=== PATIENT | female | born 1995 | race African-American/Black ===

== ENCOUNTER → 2019-12-06 | Emergency (ER) | payer MEDICAID ==
[~2019-12-06] VITALS: Ht 162.6 cm; Wt 68.0 kg
[~2019-12-06] MED LIST: KETOROLAC TROMETH 60MG/2ML VIAL IM ONE
[2019-12-06 16:00] VITALS: BP 116/63
== END | disposition home or self-care (01) ==
LOC: ER 11:59
DX: M26.601 Right temporomandibular joint disorder, unspecified (principal); Z32.02 Encounter for pregnancy test, result negative; Z90.49 Acquired absence of other specified parts of digestive tract; Z88.6 Allergy status to analgesic agent
CPT/HCPCS: 70486; 81025; 96372; 99284; J1885

== ENCOUNTER 2021-09-26 09:21 | Emergency (ER) | payer MEDICAID, OTHER ==
[~2021-09-26] VITALS: Ht 162.6 cm; Wt 72.6 kg
[2021-09-26] MEDS ORDERED: ONDANSETRON HCL 4 MG/2 ML VIAL IV ONE (09:45)
[2021-09-26 09:55] LABS: Basophils # (auto) 0 10 ^3/uL (0-0.2); Basophils % (auto) 0.2 % (0.0-2.0); Eosinophils # (auto) 0 10 ^3/uL (0-0.8); Eosinophils % (auto) 0.3 % (0.0-7.0); Hematocrit 37.7 % (36.0-46.0); Lymphocytes % (auto) 7.8 % (10.0-50.0); Mean Corpuscular Hemoglobin 29.3 pg (28.0-32.0); Mean Corpuscular Hgb Conc. 34.5 g/dL (32.0-36.0); Mean Corpuscular Volume 84.9 fL (80.0-100.0); Monocytes # (auto) 0.4 10 ^3/uL (0-1.3); Neutrophils # (auto) 11.6 10 ^3/uL (1.6-8.6); Neutrophils % (auto) 88.7 % (37.0-80.0); Nucleated Red Blood Cells % 0.1 %; Red Blood Cells 4.44 10^6/uL (4.0-5.20); Red Cell Distribution Width 13.9 % (11.8-14.3); White Blood Cell 13.1 10^3/uL (4.4-10.8)
[2021-09-26] MEDS ORDERED: MORPHINE SULFATE 4 MG/ML SYR/VIAL IV ONE ×2 (10:00→15:30)
[2021-09-26] MEDS ORDERED: SODIUM CHLORIDE 0.9% 1,000 ML IV ONE ×2 (10:00)
[2021-09-26 11:01] LABS: Urine Bacteria FEW /hpf (None Seen); Urine Blood 2+ /uL (Negative); Urine Budding Yeast MODERATE /hpf (None Seen); Urine Mucus FEW (None Seen); Urine WBC 247 /hpf (0 - 5); Urine WBC Clumps PRESENT /hpf (None Seen)
[2021-09-26 11:13] LABS: Alcohol, Urine < 3.0 mg/dL (0-10); Amphetamine Screen, Urine NEGATIVE (NEGATIVE); Barbiturate Scree,Urine NEGATIVE (NEGATIVE); Benzodiazephine Screen, Urine NEGATIVE (NEGATIVE); Cannabinoid Screen, Urine POSITIVE (NEGATIVE); Cocaine Screen, Urine NEGATIVE (NEGATIVE); Opiate Scree,Urine NEGATIVE (NEGATIVE); Phencyclidine Screen, Urine NEGATIVE (NEGATIVE)
[2021-09-26] MEDS ORDERED: cefTRIAXone 1GM/50ML D5W 50 ML IV ONE ×2 (12:30→15:30)
[2021-09-26 12:44] LABS: Potassium 4.3 mmol/L (3.5-5.1)
[2021-09-26 12:45] LABS: Albumin 3.7 g/dL (3.4-5.0); BUN/Creatinine Ratio 10.6; Bilirubin, Total 0.6 mg/dL (0.2-1.0); Calcium 8.7 mg/dL (8.5-10.1)
[2021-09-26] MEDS ORDERED: IBU600T PO (15:27)
[2021-09-26] MEDS ORDERED: CEPH-509 PO (15:27)
[2021-09-26] MEDS ORDERED: METR500T PO (15:27)
[2021-09-26] MEDS ORDERED: metroNIDAZOLE 500MG/100ML 100 ML IV ONE (15:30)
[2021-09-26 17:35] VITALS: BP 99/58
== END 2021-09-26 17:41 | disposition home or self-care (01) ==
LOC: ER 09:21
DX: K52.9 Noninfective gastroenteritis and colitis, unspecified (principal); F12.10 Cannabis abuse, uncomplicated; Z90.49 Acquired absence of other specified parts of digestive tract; Z88.8 Allergy status to other drugs, medicaments and biological substances
CPT/HCPCS: 36415; 74176; 80053; 80307; 81001; 85025; 96361; 96365; 96366; 96367; 96375; 96376; 99285; J0696; J2270; J2405; J3490; J7030

== ENCOUNTER 2022-01-20 12:36 | Emergency (ER) | payer MEDICAID, OTHER ==
[~2022-01-20 12:36] MED LIST changes: +CEPH-509 PO; +IBU600T PO; -KETOROLAC TROMETH 60MG/2ML VIAL IM ONE; +METR500T PO
[2022-01-20 13:29] VITALS: BP 143/76
[2022-01-20 13:58] LABS: Basophils # (auto) 0.1 10 ^3/uL (0-0.2); Basophils % (auto) 1.9 % (0.0-2.0); Eosinophils # (auto) 0.2 10 ^3/uL (0-0.8); Eosinophils % (auto) 4.5 % (0.0-7.0); Hematocrit 36.2 % (36.0-46.0); Lymphocytes % (auto) 21.3 % (10.0-50.0); Mean Corpuscular Hemoglobin 28.8 pg (28.0-32.0); Mean Corpuscular Hgb Conc. 33.2 g/dL (32.0-36.0); Mean Corpuscular Volume 86.7 fL (80.0-100.0); Monocytes # (auto) 0.2 10 ^3/uL (0-1.3); Monocytes % (auto) 4.1 % (0.0-12.0); Neutrophils # (auto) 3.1 10 ^3/uL (1.6-8.6); Neutrophils % (auto) 68.2 % (37.0-80.0); Nucleated Red Blood Cells % 0.1 %; Red Blood Cells 4.17 10^6/uL (4.0-5.20); Red Cell Distribution Width 13.6 % (11.8-14.3); White Blood Cell 4.5 10^3/uL (4.4-10.8)
[2022-01-20 14:04] LABS: Urine Bacteria NONE SEEN /hpf (None Seen); Urine Blood Negative /uL (Negative); Urine Hyaline Cast FEW /lpf (0 - 2); Urine Mucus FEW (None Seen); Urine Specific Gravity 1.026 (1.001-1.035); Urine WBC 48 /hpf (0 - 5)
[2022-01-20 14:26] LABS: Albumin 3.8 g/dL (3.4-5.0); BUN/Creatinine Ratio 12.5; Calcium 8.8 mg/dL (8.5-10.1); Potassium 3.6 mmol/L (3.5-5.1)
[2022-01-20 14:29] LABS: Bilirubin, Total 1.1 mg/dL (0.2-1.0); Total Protein 7.9 g/dL (6.4-8.2)
[2022-01-20] MEDS ORDERED: NITR-87 PO (15:25)
[2022-01-20] MEDS ORDERED: cefTRIAXone W LIDOCAINE 1 GM IM IM ONE (15:30)
== END 2022-01-20 16:50 | disposition left against medical advice (07) ==
LOC: ER 12:36
DX: N39.0 Urinary tract infection, site not specified (principal); Z90.49 Acquired absence of other specified parts of digestive tract; Z79.1 Long term (current) use of non-steroidal anti-inflammatories (NSAID); Z79.899 Other long term (current) drug therapy
CPT/HCPCS: 36415; 80053; 81001; 83690; 84702; 85025; 99283; J0696

== ENCOUNTER 2023-07-16 08:55 | Emergency (ER) | payer MEDICAID ==
[~2023-07-16] VITALS: Ht 162.6 cm; Wt 70.5 kg
[~2023-07-16 08:55] MED LIST changes: +IBUP-1456 PO; +NITR-87 PO; +ONDA-144 PO
[2023-07-16 10:41] VITALS: BP 121/61; PULSE 98; RESP 16; O2SAT 98
[2023-07-16] MEDS ORDERED: ACETAMINOPHEN 500 MG TAB PO ONE (10:45)
[2023-07-16] MEDS ORDERED: ONDANSETRON ODT 4 MG TAB PO ONE (10:45)
[2023-07-16 12:13] VITALS: TEMP 98.6
[2023-07-16 12:33] LABS: Rapid Influenza A Negative (Negative); Rapid Influenza B Negative (Negative)
[2023-07-16 12:36] LABS: COVID19 ANTIGEN SOFIA FIA POSITIVE (NEGATIVE)
[2023-07-16] MEDS ORDERED: ZOFR4T PO (12:38)
[2023-07-16] MEDS ORDERED: ACET500T58 PO (12:38)
[2023-07-16] MEDS ORDERED: BENZ100C97 PO (12:38)
[2023-07-16] MEDS ORDERED: PROM1SOL4 PO (12:38)
== END 2023-07-16 13:05 | disposition home or self-care (01) ==
LOC: ER 08:55
DX: U07.1 COVID-19 (principal); F12.10 Cannabis abuse, uncomplicated; R94.31 Abnormal electrocardiogram [ECG] [EKG]; Z90.49 Acquired absence of other specified parts of digestive tract
CPT/HCPCS: 36415; 87426; 87804; 93005; 99284; Q0162

== ENCOUNTER 2024-11-20 12:55 | Emergency (ER) | payer MEDICAID ==
[~2024-11-20 12:55] MED LIST changes: +ACET500T58 PO; +BENZ100C97 PO; +PROM1SOL4 PO; +ZOFR4T PO
== END 2024-11-20 14:01 | disposition left against medical advice (07) ==
LOC: EDBD 12:55 → ER 13:01
DX: M79.18 Myalgia, other site (principal); Z53.21 Procedure and treatment not carried out due to patient leaving prior to being seen by health care provider